=== PATIENT | male | born 1995 | race Caucasian/White ===

== ENCOUNTER 2017-10-28 14:23 | Emergency (ER) | payer OTHER ==
[~2017-10-28] VITALS: Ht 180.3 cm; Wt 77.3 kg
[2017-10-28 15:09] VITALS: Ht 180.3 cm; Wt 77.3 kg
[2017-10-28] MEDS ORDERED: TORADOL10 MG PO (17:01)
[2017-10-28 17:33] VITALS: BP 116/68
== END 2017-10-28 17:35 | disposition home or self-care (01) ==
LOC: D.ER 14:23
DX: S46.812A Strain of other muscles, fascia and tendons at shoulder and upper arm level, left arm, initial encounter (principal); T14.8XXA Other injury of unspecified body region, initial encounter; V49.9XXA Car occupant (driver) (passenger) injured in unspecified traffic accident, initial encounter; Y93.89 Activity, other specified; Y92.410 Unspecified street and highway as the place of occurrence of the external cause; M54.2 Cervicalgia; K21.9 Gastro-esophageal reflux disease without esophagitis; F17.200 Nicotine dependence, unspecified, uncomplicated